=== PATIENT | male | born 1995 | race African-American/Black ===

== ENCOUNTER 2022-11-07 15:37 | Emergency (ER) | payer SELFPAY ==
[~2022-11-07 15:37] MED LIST: Iopamidol-370 76% 500 ML MDV (1 ML CHARGE) ONE
[2022-11-07 16:25] LABS: #Basophils 0.1 thou/uL (0.0-0.2); #Eosinphils 0.1 thou/uL (0.0-0.7); %Basophils 0.6 % (0.0-1.0); %Eosinophils 0.9 % (0.0-10.0); %Lymphocytes 12.4 % (21.0-51.0); %Monocytes 10.7 % (0.0-10.0); %Neutrophils 74.3 % (42.0-75.0); Hematocrit 45.4 % (42.0-52.0); Hemoglobin 15.2 g/dL (14.0-18.0); Mean Corpuscular HGB CONC 33.5 g/dL (32.0-36.0); Mean Corpuscular Hemoglobin 27.3 pg (27.0-31.0); Mean Corpuscular Volume 81.5 fl (78.0-98.0); Mean Platelet Volume 10.4 fL (7.4-10.4); Platelet Count 215 10x3/uL (130-400); RBC Distribution Width 14.3 % (11.5-14.5); Red Blood Cell (RBC) Count 5.57 mill/uL (4.70-6.10); White Blood Cell (WBC) Count 9.4 10x3/uL (4.8-10.8)
[2022-11-07 16:38] LABS: PTT 32.6 sec (22.9-36.1)
[2022-11-07 16:48] LABS: ALT (SGPT) 21 U/L (8-55); AST (SGOT) 21 U/L (5-34); Albumin 4.1 g/dL (3.5-5.0); Alkaline Phosphatase 63 U/L (40-110); Anion Gap 14 mmol/L (10-20); BUN (Urea Nitrogen) 12 mg/dL (8.9-20.6); Bilirubin, Total 0.3 mg/dL (0.2-1.2); Calc. Creatinine Clearance 0 mL/min (70-130); Calcium 9.5 mg/dL (7.8-10.44); Carbon Dioxide 22 mmol/L (22-29); Chloride 105 mmol/L (98-107); Estimated GFR 94; Globulin 3.2 g/dL (2.4-3.5); Glucose 118 mg/dL (70-105); Protein, Total 7.3 g/dL (6.0-8.3); Sodium 137 mmol/L (136-145)
[2022-11-07] MEDS ORDERED: Boostrix 0.5 ML (Tdap) VIAL (>/=7 yrs of age) ONE (16:48)
[2022-11-07] MEDS ORDERED: Ketorolac Tromethamine 30 MG/ML VIAL ONE (16:48)
[2022-11-07] MEDS ORDERED: Acetaminophen 500 MG TAB ONE (16:48)
[2022-11-07] MEDS ORDERED: Lidocaine 1% w/Epinephrine 1:100K 20 ML VIAL ONE (16:48)
[2022-11-07] MEDS ORDERED: Ketamine 50 MG/ML (10ML VIAL) ONE (19:25)
[2022-11-07] MEDS ORDERED: Cephalexin 250 MG CAP ONE (19:26)
[2022-11-07] MEDS ORDERED: Sulfameth/Trimethoprim DS 800-160mg TAB ONE (19:26)
[2022-11-07 19:28] LABS: Lactic Acid 0.9 mmol/L (0.5-2.2)
== END 2022-11-07 19:42 | disposition home or self-care (01) ==
LOC: ERS 15:37
DX: L98.9 Disorder of the skin and subcutaneous tissue, unspecified (principal); F17.210 Nicotine dependence, cigarettes, uncomplicated
CPT/HCPCS: 10060; 36415; 80053; 83605; 85025; 85610; 85730; 87040; 87070; 87077; 87186; 87205; 90471; 90715; 96374; J1885; Q9967

== ENCOUNTER 2023-10-28 10:34 | Emergency (ER) | payer OTHER, SELFPAY ==
[2023-10-28] MEDS ORDERED: Ketorolac Tromethamine 30 MG (1 mL) VIAL ONE (12:05)
[2023-10-28] MEDS ORDERED: Dexamethasone 10 MG/ML VIAL ONE (12:05)
== END 2023-10-28 14:26 | disposition home or self-care (01) ==
LOC: ERS 10:34
DX: K12.2 Cellulitis and abscess of mouth (principal); F17.210 Nicotine dependence, cigarettes, uncomplicated
CPT/HCPCS: 87081; 87430; 96372; J1100; J1885